=== PATIENT | female | born 1975 | race Caucasian/White ===

== ENCOUNTER 2017-11-28 10:38 | Outpatient (CLI) | payer BC | END 2017-11-28 10:39 | disposition home or self-care (01) | LOC: BICULT 10:38 | PROVIDERS: ATTEND Family Medicine | DX: I10 Essential (primary) hypertension (principal) | CPT/HCPCS: 76770 ==

== ENCOUNTER 2018-05-01 17:21 | Emergency (ER) | payer BC ==
[2018-05-01] MEDS ORDERED: Metoclopramide HCl 10 MG/2 ML VIAL ONE (17:58)
[2018-05-01] MEDS ORDERED: methylPREDNISolone Sod Succ/PF 125 MG/2 ML VIAL ONE (17:58)
[2018-05-01] MEDS ORDERED: Ketorolac Tromethamine 30 MG/ML VIAL ONE (17:58)
[2018-05-01] MEDS ORDERED: diphenhydrAMINE 50 MG/ML VIAL ONE (17:58)
[2018-05-01 18:02] LABS: #Lymphocytes 1.4 thou/uL (1.20-3.40); #Monocytes 0.8 thou/uL (0.11-0.59); #Neutrophils 9.8 thou/uL (1.40-6.50); %Basophils 0.3 % (0.0-1.0); %Eosinophils 0.1 % (0.0-10.0); %Lymphocytes 11.8 % (21.0-51.0); %Monocytes 6.8 % (0.0-10.0); %Neutrophils 80.9 % (42.0-75.0); Hemoglobin 12.8 g/dL (12.0-16.0); Mean Corpuscular HGB CONC 35.1 g/dL (32.0-36.0); Mean Corpuscular Hemoglobin 29.4 pg (27.0-31.0); Mean Corpuscular Volume 83.9 fL (78.0-98.0); Mean Platelet Volume 8.6 fL (7.4-10.4); Platelet Count 246 thou/uL (130-400); RBC Distribution Width 12.7 % (11.5-14.5); Red Blood Cell (RBC) Count 4.35 mill/uL (4.20-5.40); White Blood Cell (WBC) Count 12.1 thou/uL (4.8-10.8)
== END 2018-05-01 19:21 | disposition home or self-care (01) ==
LOC: SCSER 17:21
DX: R51 Headache (principal); I10 Essential (primary) hypertension; Z79.899 Other long term (current) drug therapy
CPT/HCPCS: 85025; 86140; 96365; 96375; J1200; J1885; J2765; J2930

== ENCOUNTER 2018-07-27 09:02 | Outpatient (CLI) | payer BC ==
--- NOTE | 2018-07-27 13:18 | RAD ---
HYSTEROSALPINGOGRAM: HISTORY: Infertility. TECHNIQUE: Informed consent was obtained from the patient. A speculum was introduced. The cervical os was loca kamilah. The cervical os was cleansed using a Betadine solution. An HSG catheter was placed into the ce rvical canal. The balloon was deployed. A small amount of sterile iodinated contrast was introduced into the cervical canal. The uterine canal filled. There was bilateral spill into the right and le ft peritoneal cavities, through patent fallopian tubes. IMPRESSION: Successful hysterosalpingogram with patency seen in both fallopian tubes and bilateral spill seen. POS: [facility]
== END 2018-07-27 09:03 | disposition home or self-care (01) ==
LOC: RAD 09:02
PROVIDERS: ATTEND Obstetrics & Gynecology
DX: Z31.41 Encounter for fertility testing (principal)
CPT/HCPCS: 58340; 74740

== ENCOUNTER 2018-08-16 16:13 | Outpatient (CLI) | payer BC ==
--- NOTE | 2018-08-17 11:56 | MMO ---
Bilateral MAMMO Bilat Screen [facility]. CLINICAL HISTORY: Patient is 42 years old and is seen for screening. The patient has no family history of breast cancer. The patient has no personal history of cancer. VIEWS: The views performed were: bilateral craniocaudal with tomosynthesis and bilateral mediolateral oblique with tomosynthesis. MAMMOGRAM FINDINGS: There are scattered fibroglandular densities. There are no suspicious masses, suspicious calcifications, or new areas of architectural distortion. IMPRESSION: THERE IS NO MAMMOGRAPHIC EVIDENCE OF MALIGNANCY. A ROUTINE FOLLOW-UP MAMMOGRAM IN 1 YEAR IS RECOMMENDED. THE RESULTS OF THIS EXAM WERE SENT TO THE PATIENT. ACR BI-RADS Category 1 - Negative MAMMOGRAPHY NOTE: 1. A negative mammogram report should not delay a biopsy if a dominant of clinically suspicious mass is present. 2. Approximately 10% to 15% of breast cancers are not detected by mammography. 3. Adenosis and dense breasts may obscure an underlying neoplasm.
== END 2018-08-16 16:14 | disposition home or self-care (01) ==
LOC: BICMAMMO 16:13
PROVIDERS: ATTEND Obstetrics & Gynecology
DX: Z12.31 Encounter for screening mammogram for malignant neoplasm of breast (principal)
CPT/HCPCS: 77063; 77067

== ENCOUNTER 2019-12-10 08:53 | Outpatient (CLI) | payer BC | END 2019-12-10 08:54 | disposition home or self-care (01) | LOC: DTY/OP 08:53 | PROVIDERS: ATTEND Family Medicine | DX: I10 Essential (primary) hypertension (principal); E87.6 Hypokalemia | CPT/HCPCS: 97802 ==

== ENCOUNTER 2024-05-13 08:05 | Outpatient (CLI) | payer BC | END 2024-05-13 08:06 | disposition home or self-care (01) | LOC: BICRAD 08:05 | PROVIDERS: ATTEND Orthopaedic Surgery | DX: S92.355D Nondisplaced fracture of fifth metatarsal bone, left foot, subsequent encounter for fracture with routine healing (principal); S92.352G Displaced fracture of fifth metatarsal bone, left foot, subsequent encounter for fracture with delayed healing ==